=== PATIENT | female | born 1985 | race African-American/Black ===

== ENCOUNTER 2020-07-14 14:37 | Emergency (ER) | payer BC ==
[2020-07-14 15:37] LABS: Absolute Lymphocytes (CBC) 3.1 K/uL (0.7-4.9); Lymphocytes % 38.7 % (15.3-44.8); MPV 8.2 fL (7.6-11.3); RBC Red Blood Cell Count 3.92 M/uL (3.86-4.86)
[2020-07-14 15:56] LABS: BUN Blood Urea Nitrogen 7 mg/dL (7-18); Bicarbonate 27 mmol/L (21-32); Glucose Level 102 mg/dL (74-106); Sodium Level 144 mmol/L (136-145); Troponin (Emerg Dept Use Only) < 0.02 ng/mL (0.0-0.045)
--- NOTE | 2020-07-14 16:09 | RAD REPORT ---
EXAM DESCRIPTION: Nereida Single View07/14/2020 3:35 pm CLINICAL HISTORY: Chest pain COMPARISON: none FINDINGS: Mild left basilar opacity The remainder of the lungs appear clear of acute infiltrate Heart is normal size IMPRESSION: Mild left basilar opacity may represent a mild pneumonia or atelectasis
--- NOTE | 2020-07-14 17:25 | RAD REPORT ---
EXAM DESCRIPTION: CT - Chest For Pe Angio - 07/14/2020 4:51 pm CLINICAL HISTORY: Chest pain COMPARISON: None. TECHNIQUE: Dynamically enhanced axial 3 mm thick images of the chest were obtained during administra tion of <100> mL Isovue 370 IV contrast. Coronal and oblique reconstruction images were generated and reviewed. Exam utilizes a protocol for optimal evaluation of pulmonary arterial tree. Maximum intensity projections 3D imaging was utilized All CT scans are performed using dose optimization technique as appropriate and may include automated exposure control or mA/KV adjustment according to patient size. FINDINGS: A pulmonary embolus is not seen. A thoracic aortic aneurysm is not noted. A pleural effusion is not seen. A pericardial effusion is not seen. Mild bibasilar lung opacities. Mild ground-glass opacity right middle lobe IMPRESSION: Negative for a pulmonary embolism. Mild bibasilar lung opacities have more the appearance of atelectasis than pneumonia Mild ground-glass opacity right middle lobe indicative of mild alveolitis
--- NOTE | 2020-07-14 17:39 | ER ---
Nurse's Notes [facility] Name: Alicja Berg Age: 34 yrs Sex: Female : 1985 Arrival Date: 07/14/2020 Time: 14:39 Bed 18 Private MD: Diagnosis: Pleurisy;Pneumonia;Chest pain, unspecified Presentation: 07/14 14:59 Chief complaint: Patient states: left sided chest pain X 5 days. pain is constant, iw worse when she moves, takes a deep breath or coughs or burps. Coronavirus screen: At this time, the client does not indicate any symptoms associated with coronavirus-19. Ebola Screen: Patient negative for fever greater than or equal to 101.5 degrees Fahrenheit, and additional compatible Ebola Virus Disease symptoms Patient denies exposure to infectious person. Patient denies travel to an Ebola-affected area in the 21 days before illness onset. No symptoms or risks identified at this time. Initial Sepsis Screen: Does the patient meet any 2 criteria? No. Patient's initial sepsis screen is negative. Does the patient have a suspected source of infection? No. Patient's initial sepsis screen is negative. Risk Assessment: Do you want to hurt yourself or someone else? Patient reports no desire to harm self or others. Onset of symptoms was July 09, 2020. 14:59 Method Of Arrival: Ambulatory iw 14:59 Acuity: CASSIDY 3 iw Triage Assessment: 15:05 General: Appears in no apparent distress. uncomfortable, obese, Behavior is bp cooperative, appropriate for age, anxious. Pain: Complains of pain in chest. EENT: No deficits noted. Neuro: No deficits noted. Cardiovascular: Reports chest pain, Rhythm is sinus rhythm. Respiratory: No deficits noted. GI: No signs and/or symptoms were reported involving the gastrointestinal system. : No signs and/or symptoms were reported regarding the genitourinary system. Derm: No deficits noted. Musculoskeletal: No deficits noted. Historical: - Allergies: 15:02 No Known Allergies; iw - Home Meds: 15:02 amlodipine oral once daily [Active]; Metoprolol Tartrate Oral [Active]; iw Hydrochlorothiazide Oral [Active]; - PMHx: 15:02 Hypertension; iw - PSHx: 15:02 None; iw - Immunization history:: Adult Immunizations not up to date. - Social history:: Smoking status: Patient reports the use of cigarette tobacco products, smokes one-half pack cigarettes per day. - Family history:: not pertinent. - Hospitalizations: : No recent hospitalization is reported. Screenin:05 Abuse screen: Denies threats or abuse. Denies injuries from another. Nutritional bp screening: No deficits noted. Tuberculosis screening: No symptoms or risk factors identified. Fall Risk None identified. Assessment: 15:05 General: SEE TRIAGE NOTE. bp 15:53 Reassessment: CRITICAL VALUE DDIMER 656, RELAYED TO MD. bp 17:10 Reassessment: PT RETURNED FROM CT. RESULTS PENDING. SR ON MONITOR. bp 17:34 Reassessment: ALL CURRENT ORDERS COMPLETE AND RESULTED UNREMARKABLE. DISPO PENDING. bp 17:51 Reassessment: PT REFUSED COVID SWAB. INFORMED. PT D/C HOME AMBULATORY, DX WITH bp PLEURISY. Vital Signs: 14:59 BP 143 / 116; Pulse 74; Resp 16; Temp 98.5; Pulse Ox 100% on R/A; Pain 10/10; bp 15:51 BP 130 / 97; Pulse 70; Resp 23; Pulse Ox 100% ; bp 17:08 BP 115 / 86; Pulse 80; Resp 16; Pulse Ox 99% ; bp ED Course: 14:39 Patient arrived in ED. ag5 14:53 Angus Oro MD is Attending Physician. rn 15:01 Triage completed. iw 15:02 Arm band placed on. iw 15:03 Haseeb Mares, RN is Primary Nurse. bp 15:05 Patient has correct armband on for positive identification. Bed in low position. Call bp light in reach. Side rails up X2. engine monitor on. Pulse ox on. NIBP on. 15:27 Missed attempt(s): 20 gauge in right antecubital area. Inserted saline lock: 20 gauge dh4 in right hand, using aseptic technique. Blood collected. 15:28 CBC with Diff Sent. dh4 15:28 Basic Metabolic Panel Sent. dh4 15:28 Troponin (emerg Dept Use Only) Sent. dh4 15:28 D-Dimer Sent. dh4 15:35 XRAY Chest (1 view) In Process Unspecified. EDMS 15:53 Patient maintains SpO2 saturation greater than 95% on room air. bp 16:34 Inserted saline lock: 20 gauge in left antecubital area, using aseptic technique. iw 16:51 CT Chest For PE Angio In Process Unspecified. EDMS 17:51 No provider procedures requiring assistance completed. IV discontinued, intact, bp bleeding controlled, No redness/swelling at site. Pressure dressing applied. Administered Medications: No medications were administered Outcome: 17:38 Discharge ordered by MD. rn 17:51 Discharged to home ambulatory, with family. bp 17:51 Condition: stable 17:51 Discharge instructions given to patient, Instructed on discharge instructions, follow up and referral plans. medication usage, Demonstrated understanding of instructions, follow-up care, medications, Prescriptions given X 2. 17:55 Patient left the ED. bp Signatures: Dispatcher [employer] EDMS Meryl Bishop, MATA AUGUST iw Angus Oro MD MD rn Peltier, Brian, RN RN bp Kwame Montelongo 5 Noé Lowery 4 Corrections: (The following items were deleted from the chart) 15:54 14:59 BP 143 / 116; Pulse 74bpm; Resp 16bpm; Pulse Ox 100% RA; Pain 10/10; iw bp
--- NOTE | 2020-07-14 17:39 | EDPHYS ---
Physician Documentation [facility] Name: Alicja Berg Age: 34 yrs Sex: Female : 1985 Arrival Date: 07/14/2020 Time: 14:39 Bed 18 Private MD: ED Physician Angus Oro HPI: 07/14 15:07 This 34 yrs old Black Female presents to ER via Ambulatory with complaints of Chest rn Pain. 15:07 The patient or guardian reports chest pain that is located primarily in the anterior rn chest wall, left. The pain does not radiate. The chest pain is described as aching, sharp. Duration: The patient or guardian reports multiple episodes, that are intermittent. Modifying factors: The symptoms are alleviated by nothing. the symptoms are aggravated by cough, deep breath, movement, palpation of area. Severity of pain: At its worst the pain was mild in the emergency department the pain is unchanged. The patient has not experienced similar symptoms in the past. The patient has not recently seen a physician. Historical: - Allergies: 15:02 No Known Allergies; iw - Home Meds: 15:02 amlodipine oral once daily [Active]; Metoprolol Tartrate Oral [Active]; iw Hydrochlorothiazide Oral [Active]; - PMHx: 15:02 Hypertension; iw - PSHx: 15:02 None; iw - Immunization history:: Adult Immunizations not up to date. - Social history:: Smoking status: Patient reports the use of cigarette tobacco products, smokes one-half pack cigarettes per day. - Family history:: not pertinent. - Hospitalizations: : No recent hospitalization is reported. ROS: 15:07 Constitutional: Negative for fever, chills, and weight loss, Eyes: Negative for injury, rn pain, redness, and discharge, Neck: Negative for injury, pain, and swelling, Cardiovascular: Negative for palpitations, and edema, Respiratory: Negative for shortness of breath, cough, wheezing Abdomen/GI: Negative for abdominal pain, nausea, vomiting, diarrhea, and constipation, MS/Extremity: Negative for injury and deformity, Skin: Negative for injury, rash, and discoloration, Neuro: Negative for headache, weakness, numbness, tingling, and seizure. Exam: 15:07 Constitutional: This is a well developed, well nourished patient who is awake, alert, rn and in no acute distress. Head/Face: Normocephalic, atraumatic. Chest/axilla: Normal chest wall appearance and motion. + reproducible left lateral chest wall tenderness, no crepitus. No rash/lesions. Cardiovascular: Regular rate and rhythm. No pulse deficits. Respiratory: No increased work of breathing, no retractions or nasal flaring. Abdomen/GI: soft, non-tender Skin: Warm, dry MS/ Extremity: Pulses equal, no cyanosis. Neurovascular intact. Full, normal range of motion. Equal circumference. Neuro: Awake and alert, GCS 15, oriented to person, place, time, and situation. Cranial nerves II-XII grossly intact. Motor strength 5/5 in all extremities. Sensory grossly intact. Vital Signs: 14:59 BP 143 / 116; Pulse 74; Resp 16; Temp 98.5; Pulse Ox 100% on R/A; Pain 10/10; bp 15:51 BP 130 / 97; Pulse 70; Resp 23; Pulse Ox 100% ; bp 17:08 BP 115 / 86; Pulse 80; Resp 16; Pulse Ox 99% ; bp MDM: 14:53 Patient medically screened. rn 17:36 Differential diagnosis: acute myocardial infarction, acute pericarditis, anxiety, chest rn wall pain, pleurisy, pneumonia, pneumothorax, pulmonary embolus. Data reviewed: vital signs, nurses notes, lab test result(s), EKG, radiologic studies, CT scan, plain films, and as a result, I will discharge patient. Counseling: I had a detailed discussion with the patient and/or guardian regarding: the historical points, exam findings, and any diagnostic results supporting the discharge/admit diagnosis, lab results, radiology results, the need for further work-up and treatment in the hospital. Special discussion: Based on the patient's history, exam, and Dx evaluation, there is no indication for emergent intervention or inpatient Tx. It is understood by the patient/guardian that if the Sx's persist or worsen they need to return immediately for re-evaluation. I discussed with the patient/guardian in detail that at this point there is no indication for admission to the hospital. It is understood, however, that if the symptoms persist or worsen the patient needs to return immediately for re-evaluation. ED course: CT chest shows multifocal pneumonitis vs atelectasis, trop neg, otherwise no acute findings, no oxygen requirement, patient now reports "COVID going around work". Will test for COVID, and dc home with abx and isolation.. 07/14 15:03 Order name: CBC with Diff; Complete Time: 16:03 rn 07/14 15:03 Order name: Basic Metabolic Panel; Complete Time: 16:03 rn 07/14 15:03 Order name: Troponin (emerg Dept Use Only); Complete Time: 16:03 rn 07/14 15:03 Order name: XRAY Chest (1 view); Complete Time: 16:16 rn 07/14 15:03 Order name: D-Dimer; Complete Time: 16:03 rn 07/14 17:36 Order name: COVID-19 bp 07/14 15:03 Order name: IV Start; Complete Time: 15:28 rn 07/14 15:03 Order name: EKG; Complete Time: 15:03 rn 07/14 15:03 Order name: EKG - Nurse/Tech; Complete Time: 15:29 rn 07/14 16:04 Order name: CT Chest For PE Angio; Complete Time: 17:40 rn Administered Medications: No medications were administered Disposition: 07/14/20 17:38 Discharged to Home. Impression: Pleurisy, Pneumonia, Chest pain, unspecified. - Condition is Stable. - Discharge Instructions: Nonspecific Chest Pain, Pleurisy, Community-Acquired Pneumonia, Adult, COVID-19. - Prescriptions for Zithromax Z- Mitchell 250 mg Oral Tablet - take 1 tablet by ORAL route as directed for 5 days Day 1 - take two (2) tablets one time. Day 2, 3, 4 , 5 take one (1) tablet once daily.; 6 tablet. Medrol (Mitchell) 4 mg Oral Tablets, Dose Pack - take 1 tablet by ORAL route as directed - follow package instructions; 1 packet. - Medication Reconciliation Form, Thank You Letter, Antibiotic Education, Prescription Opioid Use form. - Follow up: Private Physician; When: As needed; Reason: Recheck today's complaints, Re-evaluation by your physician. - Problem is new. - Symptoms have improved. Signatures: Dispatcher [employer] Meryl Jones RN RN iw Nieto, Roman, MD MD rn Peltier, Brian RN RN bp Corrections: (The following items were deleted from the chart) 17:55 17:38 07/14/2020 17:38 Discharged to Home. Impression: Pleurisy; Pneumonia; Chest pain, bp unspecified. Condition is Stable. Forms are Medication Reconciliation Form, Thank You Letter, Antibiotic Education, Prescription Opioid Use. Follow up: Private Physician; When: As needed; Reason: Recheck today's complaints, Re-evaluation by your physician. Problem is new. Symptoms have improved. rn
[2020-07-14 18:38] VITALS: TEMP 98.5
[2020-07-14 18:41] VITALS: BP 115/86; O2SAT 99
--- OUTSIDE RECORDS SUMMARY | 2020-07-15 05:01 | XMS REPORT | Clinical Summary ---
:1985 Author Organization [facility] Address [address] [place] [address] Care Team Providers Name Role Phone Dequan Rodrigez MD Primary Care Provider Allergies Active Allergy Reactions Severity Noted Date Comments Codeine Hives 10/27/2019 Medications Medication Sig Dispensed Refills Start Date End Date Status aspirin (ECOTRIN) 81 MG Take 81 mg by 0 03/31/2019 Active enteric coated tablet mouth daily. metoprolol succinate XL Take 25 mg by 0 03/31/2019 Active (TOPROL-XL) 25 mg 24 hr mouth daily. tablet hydroCHLOROthiazide Take 25 mg by 0 Active (HYDRODIURIL) 25 MG mouth daily. tablet amLODIPine (NORVASC) 10 Take 10 mg by 0 Active mg tablet mouth daily. oseltamivir (TAMIFLU) 75 Take 1 10 capsule 0 10/27/2019 MG capsule capsule (75 0 mg total) by mouth every 12 (twelve) hours for 5 days. Active Problems Problem Noted Date Menorrhagia with irregular cycle 06/30/2019 Encounters Date Type Specialty Care Team Description 10/27/2019 Emergency Emergency Medicine Pranav Curiel Flu-lik e symptoms (Primary Dx); Neto Rutherford MD Viral illness 08/24/2019 Transcribe Orders Access Maria Del Rosario Tran Fertil ity testing MD (Primary Dx) after 07/14/2019 Surgical History Surgery Date Site/Laterality Comments CHOLECYSTECTOMY HYSTEROSCOPY, DIAGNOSTIC 06/30/2019 Uterus/N/A Procedu re: HYSTEROSCOPY, D&C WITH TRUCLEAR; Surge on: Maria Del Rosario Tran MD; L ocation: [facility] Main OR; Service: Ob stetrics; Laterality: N/A; Medical History Medical History Date Comments Hypertension Chest pain admitted once with c p, but not cardiac related. smj Asthma childhood Immunizations up to date Family History Medical History Relation Name Comments Heart failure Father Hypertension Father Diabetes Mother Hypertension Mother Thyroid disease Mother Relation Name Status Comments Father Mother Alive Social History Tobacco Use Types Packs/Day Years Used Date Current Every Day Smoker Cigarettes 3 20 Smokeless Tobacco: Never Used Alcohol Use Drinks/Week oz/Week Comments Yes socially Sex Assigned at Date Recorded Not on file Last Filed Vital Signs Vital Sign Reading Time Taken Comments Blood Pressure 142/76 10/27/2019 2:05 PM [employer]TE[employer] INS[employer] Pulse 116 10/27/2019 2:05 PM [employer]TE[employer] INSPECTOR Temperature 37.8 C (100 F) 10/27/2019 2:05 PM [employer]TENA[employer] INSPECTOR Respiratory Rate 18 10/27/2019 2:05 PM [employer]TENA[employer] INSPECTOR Oxygen Saturation 97% 10/27/2019 2:05 PM [employer]TENA[employer]CE INSPECTOR Inhaled Oxygen Concentration - - Weight 111 kg (245 lb) 10/27/2019 12:12 PM [employer]TENA[employer]CE INSPECTOR Height 165.1 cm (5' 5") 10/27/2019 12:12 PM [employer]TENAN[employer] INSPECTOR Body Mass Index 40.77 10/27/2019 12:12 PM [employer]TENANCE INSPECTOR Plan of Treatment Health Maintenance Due Date Last Done Comments CERVICAL CANCER SCREENING 2004 INFLUENZA VACCINE 05/07/2020 Procedures Procedure Name Priority Date/Time Associated Diagnosis Comme nts ESTIMATED GFR STAT 10/27/2019 1:30 PM Results for this [employer]TENANCE INSPECTOR procedure are i n the results section. BASIC METABOLIC STAT 10/27/2019 1:30 PM Resul ts for this PANEL [employer]INTENANCE INSPECTOR procedure are i n the results section. after 07/14/2019 Results Estimated GFR (10/27/2019 1:30 PM [employer] CAR[employer]ER MAINTENANCE INSPECTOR) Estimated GFR >=90 mL/min/1.73 [facility] Comment: m2 HOOKER Catergory Units Interpretation [facility] G1 >=90 Normal or high CENTER G2 60-89 Mildly decreased G3a 45-59 Mildly to moderately decreas ed G3b 30-44 Moderately to severely decre ased G4 15-29 Severely decreased G5 <15 Kidney failure The eGFR was calculated using the Chronic Kidney Disea se Epidemiology Collaboration (CKD-EPI) equation. Interpretation is based on recommendations of the National Kidney Foundation-Kidney Disease Outcomes Faisal lity Initiative (NKF-KDOQI) published in 2014. Specimen Plasma specimen Performing Organization Address City/State/ZIP Code Phon e Number DEPARTMENT OF PATHOLOGY AND [address] [place] [phone] [address] [facility] Basic metabolic panel (10/27/2019 1:30 PM AIR CAR[employer]ER MAINTENANCE INSPECTOR) Pathologist Sig nature Glucose 110 73 - 118 mg/dL [facility] BUN 7 7 - 22 mg/dL [facility] Calcium 8.4 8.0 - 10.3 mg/dL [facility] Creatinine 0.7 0.5 - 0.9 mg/dL [facility] Sodium 134 128 - 145 mEq/L [facility] Potassium 3.1 (L) 3.6 - 5.1 mEq/L [facility] Chloride 106 98 - 108 mEq/L [facility] CO2 25 18 - 33 mEq/L [facility] Anion gap 3@ANIO (L) 7 - 15 mEq/L [facility] Specimen Plasma specimen Performing Organization Address City/State/ZIP Code Phon e Number DEPARTMENT OF PATHOLOGY AND [address] [place] [address] 7 [phone] [place] [address] [facility] after 07/14/2019 Advance Directives For more information, please contact: [phone] Type Date Recorded Patient Exercise Physiologist Explanati on Advance Directives, Living Will 06/25/2019 10:05 AM and Medical Power of Systems Development Consultant
--- NOTE | 2020-07-17 11:18 | EKG ---
Test Date: 2020-07-14 Test Time: 15:45:11 Predatory Animal Exterminator: AKILAH MEASUREMENT RESULTS: Intervals: Rate: 76 OR: 166 QRSD: 92 QT: 386 QTc: 434 [place]: P: 54 OR: 166 QRS: 19 T: -4 INTERPRETIVE STATEMENTS: Normal sinus rhythm T wave abnormality, consider inferior ischemia Abnormal ECG No previous ECG available for comparison Electronically Signed On 07-17-20 11:14:47 CDT by Regan Nolan
== END 2020-07-14 17:55 | disposition home or self-care (01) ==
LOC: ER 14:37
DX: J18.9 Pneumonia, unspecified organism (principal); R09.1 Pleurisy; Z53.20 Procedure and treatment not carried out because of patient's decision for unspecified reasons; I10 Essential (primary) hypertension; F17.210 Nicotine dependence, cigarettes, uncomplicated
CPT/HCPCS: 93005; 85025; 80048; 36415; 85379; 84484; 71275; 71045; 99285; Q9967

== ENCOUNTER 2020-09-02 17:59 | Emergency (ER) | payer BC ==
[2020-09-02] MEDS ORDERED: DIAZEPAM 5 MG TABLET ONE (19:08)
[2020-09-02] MEDS ORDERED: KETOROLAC 30 MG/ML INJ ONE (19:08)
[2020-09-02] MEDS ORDERED: HYDROCODONE/APAP 5/325 MG TAB ONE (19:08)
--- NOTE | 2020-09-02 19:10 | RAD REPORT ---
EXAM DESCRIPTION: RAD - Knee Left 3 View - 09/02/2020 6:58 pm CLINICAL HISTORY: Left knee pain FINDINGS: No fracture or dislocation is seen. Mild medial joint space narrowing. Small joint effusion suspected. Soft tissue swelling
--- NOTE | 2020-09-02 19:49 | RAD REPORT ---
EXAM DESCRIPTION: [facility] 7:42 pm CLINICAL HISTORY: left leg pain COMPARISON: None. FINDINGS: Left common femoral, superficial femoral, popliteal and posterior tibial veins are compre ssible and demonstrate augmentation. Doppler demonstrates good flow. IMPRESSION: No evidence of deep venous thrombosis involving the left lower extremity.
--- NOTE | 2020-09-02 20:00 | ER ---
Nurse's Notes [facility] Name: Alicja Berg Age: 35 yrs Sex: Female : 1985 Arrival Date: 09/02/2020 Time: 18:01 Bed 18 Private MD: Diagnosis: Pain in left knee Presentation: 09/02 18:11 Chief complaint: Patient states: left knee swelling since 08/26/20, denies trauma, had em a virtual meeting with a doctor that prescribed her steroids for the swelling 4 days ago but it is not helping. Coronavirus screen: Client denies travel out of the [place] in the last 14 days. Ebola Screen: Patient negative for fever greater than or equal to 101.5 degrees Fahrenheit, and additional compatible Ebola Virus Disease symptoms Patient denies exposure to infectious person. Patient denies travel to an Ebola-affected area in the 21 days before illness onset. No symptoms or risks identified at this time. Initial Sepsis Screen: Does the patient meet any 2 criteria? No. Patient's initial sepsis screen is negative. Does the patient have a suspected source of infection? No. Patient's initial sepsis screen is negative. Risk Assessment: Do you want to hurt yourself or someone else? Patient reports no desire to harm self or others. Onset of symptoms was August 26, 2020. 18:11 Method Of Arrival: Wheelchair em 18:11 Acuity: CASSIDY 4 em ARMHOLE BASTER HAND: 18:13 LMP 08/12/2020 em Historical: - Allergies: 18:13 No Known Allergies; em - PMHx: 18:13 Hypertension; em - PSHx: 18:13 None; em - Immunization history:: Adult Immunizations up to date. - Social history:: Smoking status: Patient reports the use of cigarette tobacco products, smokes one-half pack cigarettes per day. Screenin:20 Abuse screen: Denies threats or abuse. Denies injuries from another. Nutritional ca1 screening: No deficits noted. Tuberculosis screening: No symptoms or risk factors identified. Fall Risk Fall in past 12 months (25 points). Assessment: 18:20 General: Appears in no apparent distress. comfortable, Behavior is calm, cooperative, ca1 appropriate for age. Pain: Complains of pain in left knee Pain currently is 8 out of 10 on a pain scale. Neuro: Level of Consciousness is awake, alert, obeys commands, Oriented to person, place, time, situation. Derm: Skin is intact, is healthy with good turgor, Skin is pink, warm \T\ dry. Musculoskeletal: Circulation, motion, and sensation intact. Capillary refill < 3 seconds, Range of motion: limited in left knee. 19:30 Reassessment: Patient appears in no apparent distress at this time. Patient and/or ca1 family updated on plan of care and expected duration. Pain level reassessed. Patient is alert, oriented x 3, equal unlabored respirations, skin warm/dry/pink. 20:31 Reassessment: Patient appears in no apparent distress at this time. Patient is alert, ca1 oriented x 3, equal unlabored respirations, skin warm/dry/pink. Vital Signs: 18:11 BP 114 / 85; Pulse 87; Resp 18; Temp 98.6(O); Pulse Ox 100% on R/A; Weight 111.13 kg; em Height 5 ft. 6 in. (167.64 cm); Pain 8/10; 19:30 BP 121 / 89; Pulse 82; Resp 16 S; Pulse Ox 100% on R/A; ca1 20:31 BP 119 / 81; Pulse 81; Resp 16 S; Pulse Ox 100% on R/A; ca1 18:11 Body Mass Index 39.54 (111.13 kg, 167.64 cm) em ED Course: 18:01 Patient arrived in ED. as 18:13 Triage completed. em 18:13 Arm band placed on. em 18:17 Dave Chang PA is PHCP. [facility] 18:17 Paolo Quinn MD is Attending Physician. m 18:20 Patient has correct armband on for positive identification. Bed in low position. Call ca1 light in reach. Side rails up X2. Pulse ox on. NIBP on. 18:23 Naz Mejia, MATA is Primary Nurse. ca1 18:59 Knee Left 3 View XRAY In Process Unspecified. EDMS 19:04 Warm blanket given. ca1 19:42 US Extremity Venous Unilateral Ltd In Process Unspecified. EDMS 19:58 Umang Peralta MD is Referral Physician. jmm 20:31 No provider procedures requiring assistance completed. Patient did not have IV access ca1 during this emergency room visit. Knee immobilizer applied on left knee. Administered Medications: 18:50 Drug: [place] 5 mg-325 mg 1 tabs {Note: rass 0.} Route: PO; ca1 20:30 Follow up: Response: No adverse reaction; Pain is decreased; RASS: Alert and Calm (0) ca1 18:51 Drug: Valium 5 mg Route: PO; ca1 19:30 Follow up: Response: No adverse reaction; Pain is decreased ca1 18:55 Drug: Ketorolac 30 mg Route: IM; Site: left gluteus; ca1 19:45 Follow up: Response: No adverse reaction; Pain is decreased ca1 Outcome: 19:59 Discharge ordered by . anna 20:32 Discharged to home via wheelchair, with significant other. ca1 20:32 Condition: stable 20:32 Discharge instructions given to patient, Instructed on discharge instructions, follow up and referral plans. medication usage, Demonstrated understanding of instructions, follow-up care, Prescriptions given X 2. 20:32 Patient left the ED. ca1 Signatures: Dispatcher [employer] Dave Rodrigues PA PA jmm Munoz, Edgar, RN RN Regina Linares Cheryl, RN RN ca1
--- NOTE | 2020-09-02 20:00 | EDPHYS ---
Physician Documentation [facility] Name: Alicja Berg Age: 35 yrs Sex: Female : 1985 Arrival Date: 09/02/2020 Time: 18:01 Bed 18 Private MD: ED Physician Paolo Quinn HPI: 09/02 18:32 This 35 yrs old Black Female presents to ER via Wheelchair with complaints of Knee Pain jmm - swelling. 18:32 The patient presents with pain. Onset: The symptoms/episode began/occurred gradually, 2 jmm week(s) ago. Modifying factors: The symptoms are alleviated by nothing. the symptoms are aggravated by movement. This is a 35 year old female with a history of htn that presents to the ED with complaints of left knee pain which developed after a long car ride. Denies known injury. Denies fever. . [employer]: 18:13 LMP 08/12/2020 em Historical: - Allergies: 18:13 No Known Allergies; em - PMHx: 18:13 Hypertension; em - PSHx: 18:13 None; em - Immunization history:: Adult Immunizations up to date. - Social history:: Smoking status: Patient reports the use of cigarette tobacco products, smokes one-half pack cigarettes per day. ROS: 18:32 Constitutional: Negative for fever, chills, and weight loss, Cardiovascular: Negative jmm for chest pain, palpitations, and edema, Respiratory: Negative for shortness of breath, cough, wheezing, and pleuritic chest pain. 18:32 MS/extremity: Positive for pain. 18:32 All other systems are negative. Exam: 18:32 Constitutional: This is a well developed, well nourished patient who is awake, alert, jmm and in no acute distress. Head/Face: atraumatic. Eyes: EOMI, no conjunctival erythema appreciated ENT: Moist Mucus Membranes Neck: Trachea midline, Supple Chest/axilla: Normal chest wall appearance and motion. Cardiovascular: Regular rate and rhythm. No edema appreciated Respiratory: Normal respirations, no respiratory distress appreciated Abdomen/GI: Non distended, soft Back: Normal ROM Skin: General appearance color normal 18:32 Musculoskeletal/extremity: pain on palpation of the left medial ;knee, no posterior tenderness, painful flexion, compartments are soft, NVI. 18:32 Skin: Appearance: Color: normal in color. 18:32 Neuro: Orientation: is normal, Mentation: is normal, Memory: is normal. 18:32 Psych: Behavior/mood is pleasant, cooperative. Vital Signs: 18:11 BP 114 / 85; Pulse 87; Resp 18; Temp 98.6(O); Pulse Ox 100% on R/A; Weight 111.13 kg; em Height 5 ft. 6 in. (167.64 cm); Pain 8/10; 19:30 BP 121 / 89; Pulse 82; Resp 16 S; Pulse Ox 100% on R/A; ca1 20:31 BP 119 / 81; Pulse 81; Resp 16 S; Pulse Ox 100% on R/A; ca1 18:11 Body Mass Index 39.54 (111.13 kg, 167.64 cm) em MDM: 18:32 Patient medically screened. [facility] 19:55 Data reviewed: vital signs, nurses notes. Counseling: I had a detailed discussion with [facility] the patient and/or guardian regarding: the historical points, exam findings, and any diagnostic results supporting the discharge/admit diagnosis, radiology results, the need for outpatient follow up, to return to the emergency department if symptoms worsen or persist or if there are any questions or concerns that arise at home. ED course: Patient is alert and non toxic in appearance in the ED. Pain is relieved in the ED. Xray concerning for OA. I do not suspect dvt or septic joint. Patient is advised to follow up with ortho for further evaluation. Patient understood and agrees with the plan of care. . 09/02 18:41 Order name: Knee Left 3 View XRAY; Complete Time: 19:37 [facility] 09/02 18:48 Order name: US Extremity Venous Unilateral Ltd; Complete Time: 20:01 [facility] 09/02 19:42 Order name: Knee Immobilizer; Complete Time: 20:30 [facility] Administered Medications: 18:50 Drug: [place] 5 mg-325 mg 1 tabs {Note: rass 0.} Route: PO; ca1 20:30 Follow up: Response: No adverse reaction; Pain is decreased; RASS: Alert and Calm (0) ca1 18:51 Drug: Valium 5 mg Route: PO; ca1 19:30 Follow up: Response: No adverse reaction; Pain is decreased ca1 18:55 Drug: Ketorolac 30 mg Route: IM; Site: left gluteus; ca1 19:45 Follow up: Response: No adverse reaction; Pain is decreased ca1 Disposition: 09/02/20 19:59 Discharged to Home. Impression: Pain in left knee. - Condition is Stable. - Discharge Instructions: Knee Pain. - Prescriptions for Ibuprofen 800 mg Oral Tablet - take 1 tablet by ORAL route every 8 hours As needed take with food; 30 tablet. Zanaflex 4 mg Oral Tablet - take 1 tablet by ORAL route every 8 hours As needed; 20 tablet. - Medication Reconciliation Form, Thank You Letter, Antibiotic Education, Prescription Opioid Use form. - Follow up: Umang Peralta MD; When: 2 - 3 days; Reason: Recheck today's complaints, Continuance of care, Re-evaluation by your physician. Addendum: 09/06/2020 03:33 Co-signature as Attending Physician, Paolo Quinn MD. m a2 Signatures: Dispatcher [employer] Dave Rodrigues PA PA jmm Munoz, Edgar, RN RN Paolo Quinn MD MD ma2 Naz Mejia RN RN ca1 Corrections: (The following items were deleted from the chart) 09/02 20:32 19:59 09/02/2020 19:59 Discharged to Home. Impression: Pain in left knee. Condition is ca1 Stable. Forms are Medication Reconciliation Form, Thank You Letter, Antibiotic Education, Prescription Opioid Use. Follow up: Umang Peralta; When: 2 - 3 days; Reason: Recheck today's complaints, Continuance of care, Re-evaluation by your physician. anna
[2020-09-02 23:38] VITALS: TEMP 98.6; O2SAT 100
[2020-09-02 23:47] VITALS: BP 119/81
== END 2020-09-02 20:32 | disposition home or self-care (01) ==
LOC: ER 17:59
DX: M25.562 Pain in left knee (principal); I10 Essential (primary) hypertension; F17.210 Nicotine dependence, cigarettes, uncomplicated
CPT/HCPCS: 93971; 96372; 99284